=== PATIENT | female | born 1950 | race Caucasian/White ===

== ENCOUNTER 2017-01-25 12:27 | Inpatient (IN) | payer MEDICARE, OTHER ==
[2017-01-22 15:39] LABS: BASOPHILS 1.5 %; BASOPHILS ABSOLUTE 0.09 10/3/uL (0.0-0.16); EOSINOPHILS 6.8 %; EOSINOPHILS ABSOLUTE 0.42 10/3/uL (0.0-0.53); HEMOGLOBIN 14.5 g/dL (12.0-16.0); IMMATURE GRANULOCYTES 0.2 %; IMMATURE GRANULOCYTES ABSOLUTE 0.01 10/3/uL (0.0-0.11); LYMPHOCYTES 24.5 %; LYMPHOCYTES ABSOLUTE 1.51 10/3/uL (0.67-4.30); MANUAL DIFF NO %; MEAN CORPUS HGB CONC 33.7 g/dL (32.0-36.0); MEAN CORPUSCULAR VOLUME 92.1 fL (80-100); MEAN PLATELET VOLUME 10.1 fL (9.2-13.0); MONOCYTES 5.3 %; MONOCYTES ABSOLUTE 0.33 10/3/uL (0.21-1.20); NEUTROPHILS 61.7 %; NEUTROPHILS ABSOLUTE 3.81 10/3/uL (2.02-8.40); PLATELET COUNT 319 10/3/uL (150-400); RBC DISTRIBUTION WIDTH 13.5 % (12.0-16.0); RED CELL COUNT 4.67 10/6/uL (4.0-5.6); WHITE BLOOD CELLS 6.2 10/3/uL (4.5-10.5)
[2017-01-22 16:15] LABS: ASCORBIC ACID (UR NOT ORDER) NEG (NEG); BILIRUBIN, URINE NEGATIVE (NEG); KETONE, URINE NEGATIVE (NEG); LEUKOCYTE ESTERASE(NOT OR LARGE (NEG); WBC (NOT ORDERED) (RFLEX) 97 (0-5)
[2017-01-22 20:46] LABS: INTERNATIONAL NORMAL RATI 1.4 UNITS (-); PROTIME (NOT ORD) 17.4 SEC (12.0-14.5)
[2017-01-22 20:52] LABS: A/G RATIO 0.8 (0.7-1.9); ALBUMIN 3.4 G/DL (3.5-5.0); ALKALINE PHOSPHATASE 133 U/L (45-117); BUN (BLOOD UREA NITROGEN) 12 MG/DL (6-23); CALCIUM, SERUM 9.2 MG/DL (8.5-10.4); CHLORIDE, SERUM 99 MMOL/L (96-112); CO2 (CARBON DIOXIDE) 32 MMOL/L (24-34); CREATININE 0.98 MG/DL (0.55-1.02); GFR AFRICAN AMERICAN 69 ML/MIN (>=60); GFR NON AFRICAN AMERICAN 60 ML/MIN (>=60); GLOBULIN 4.1 G/DL (2.5-4.1); GLUCOSE, SERUM 90 MG/DL (60-99); POTASSIUM, SERUM 4.3 MMOL/L (3.5-5.3); SGOT(AST) 16 U/L (5-40); SGPT(ALT) 10 U/L (5-65); SODIUM, SERUM 139 MMOL/L (135-148); TOTAL BILIRUBIN 0.4 MG/DL (0-1.2); TOTAL PROTEIN 7.5 G/DL (6.0-8.5)
--- NOTE | ~2017-01-25 | DS ---
Discharge Summary [id number] [place]. [address] NAME: TETE LUEVANO : 48 STATUS : DIS IN PAT#: [id number] AGE: 66 ADM/REG DATE : 01/25/17 MR#: [id number] REPORT SERV DATE: 02/08/17 DICTATED BY: JERRY VELASQUEZ DATE: 02/07/17 REPORT STATUS : Draft TRANSCRIBED BY: RONALD DATE: 02/07/17 Data Collection from hospitalization DISCHARGE DIAGNOSES: 1. 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 2. Osteoarthritis. 3. History of cerebrovascular accident. 4. Migraine headaches. 5. Former smoker. CONSULTATIONS: Elian Gibson MD PROCEDURES PERFORMED: Right total hip arthroplasty with removal of IM nail, complex reconstruction, 01/25/2017. PATHOLOGY: Right femoral head and hardware revision arthroplasty - femoral head with extensive marrow necrosis, focal osteonecrosis, and organizing hematoma consistent with fracture site. No malignant neoplasm identified. Changes of degenerative joint disease. Metallic deedee and screw tip consistent with orthopaedic hardware. MEDICATIONS: Colace 100 mg twice a day, Cymbalta 30 mg daily, vitamin D 50,000 units weekly, Flonase nasal spray one spray nasally daily, Neurontin 300 mg three times a day, Theragran tablets one tablet with breakfast, Klor-Con 20 mEq daily, Seroquel 25 mg at bedtime, Coumadin 2 mg at 6:00 p.m., [place] 7.5/325 one tablet every six hours as needed, Xanax 1 mg three times a day as needed, Robaxin 500 mg four times a day as needed, Zofran 4 mg as needed and as instructed, MiraLAX powder one packet as needed, Tylenol 650 mg every four hours as needed, Requip 0.25 mg twice a day, and Lasix 20 mg daily. CONDITION AT DISCHARGE: Stable. DISPOSITION: The patient was discharged to [facility] on a regular diet with activities as instructed. HOSPITAL COURSE: This is a 66-year-old female who had the complaint of severe constant right hip pain. She is status post open reduction and internal fixation of right subtrochanteric fracture in June of 2016. She said that she was doing better standing. She presented to the office on a stretcher. She said that her pain was due to an accident/injury after a fall on 07/01/2016. She had a hip surgery on 07/05/2016 in [place]. The patient was moved to [place] and into the [facility]. She said that her pain was significantly increased and she was concerned with her nonweightbearing x1 week and significant swelling and pain going into the right foot with soreness. 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 She was felt to have right hip subtrochanteric nonunion and severe collapse, status post IM nailing by another surgeon. Treatment options were discussed and it was elected to proceed with surgical intervention. She was admitted to the hospital at this time for further evaluation and treatment. Upon admission, she was taken to the operating room where she underwent the above-mentioned Discharge Summary [address] [address] NAME: TETE LUEVANO : 48 STATUS : DIS IN PAT#: [id number] AGE: 66 ADM/REG DATE : 01/25/17 MR#: [id number] REPORT SERV DATE: 02/08/17 DICTATED BY: JERRY VELASQUEZ DATE: 02/07/17 REPORT STATUS : Draft TRANSCRIBED BY: RONALD DATE: 02/07/17 procedure. She tolerated this well, and there were no complications. On postop day #1, she was doing well. She said it was hard to express herself verbally. KATHERINE hose were in place. She was found to have an E. coli urinary tract infection. Cipro was started. Her hypotension was improving. She was seen by Dr. Elian Gibson regarding medical management. The patient was unable to provide any history at this time. She reported no complaints other than pain. At the time of this evaluation, the patient was oliguric and anemic with a hemoglobin of 6.1. The patient was hypotensive, on IV fluids. He was unable to characterize if this was normocytic or microcytic anemia. The etiology was most likely secondary to acute blood loss in the setting of recent surgery. Hemoglobin had trended down from 9.4 to 6.1. Two units of packed red blood cells were going to be transfused. The patient did have some oliguria. The etiology was felt likely secondary to volume depletion. On exam, the patient did appear dry. A 500 mL bolus was going to be given and the patient started on normal saline. Acute kidney injury was improving. Creatinine had decreased from 1.44 to 1.04. Hypotension was felt likely secondary to volume depletion in the setting of severe blood well and status post surgery. All of her other medical problems would be managed on her home regimen. She was able to be up sitting in a bedside chair. She had some right-sided weakness and right arm contracture from her history of aneurysm. Coumadin was being held. INR level was supratherapeutic at 4.2. On 01/28/2017, creatinine level was 1.04. Vitamin depletion had resolved. Hypotension had also resolved. The patient said that Robaxin helped with her right leg spasms. No active bleeding was noted. IV vitamin K was given. Coumadin remained on hold. INR level was supratherapeutic now at 10.9. The following day, her INR level decreased to 1.4. Her pain was too intense to participate with Physical Therapy. We encouraged her to mobilize with Physical Therapy. Her supratherapeutic INR had improved with vitamin K. low-dose Coumadin was going to be restarted. Requip was continued. Discharge planning was performed. She did complain of some hip pain after participating with Physical Therapy. Occupational and Physical Therapy had evaluated the patient. Discharge planning continued. On 01/30/2017, she was in no acute distress. She had no complaints. KATHERINE hose remained in place. Discharge instructions were given. Due to her improved and stable condition, she was discharged to [facility] with the above-stated instructions. Information collected by: Maya Gomez I submit the above information as my discharge summary. TG/MODL Stefanie Velasquez M.D. / [id number] CC: Concha Botello ANDREA J [facility]
--- NOTE | ~2017-01-25 | CN ---
Consultation Report [facility] [address] [place]. [address] NAME: GHISLAINE LUEVANO : 48 STATUS : ADM IN [facility]#: [id number] AGE: 66 ADM/REG DATE : 01/25/17 MR#: [id number] REPORT SERV DATE: 01/27/17 DICTATED BY: MADISON KAHN DATE: 01/27/17 REPORT STATUS : Draft TRANSCRIBED BY: MODJose DATE: 01/27/17 CONSULTATION NOTE DATE OF CONSULTATION: REASON FOR CONSULT: Medical management. HISTORY OF PRESENTING ILLNESS: Ms. Ghislaine Luevano is a 66-year-old female with a history of schizoaffective disorder, osteoarthritis, and right hip nailing surgery, who was seen by Orthopedics for right total hip arthroplasty with removal of IM nail and complex reconstruction. The patient is status post procedure, which she tolerated well. Internal Medicine is being consulted to assist with medical management, status post procedure. At the time of my evaluation, the patient was unable to provide history. History is obtained through chart review. The patient reported no other complaints other than pain. At the time of my evaluation of the patient, the patient was oliguric, anemic with a hemoglobin of 6.1, and the patient was hypotensive, on IV fluid. PAST MEDICAL HISTORY: Per chart review: 1. Osteoarthritis. 2. History of DVT. 3. History of CVA. 4. Migraine headaches. PAST SURGICAL HISTORY: 1. Right shoulder arthroscopic surgery. 2. Hysterectomy. 3. Right hip nailing. FAMILY HISTORY: Significant for mother, osteoarthritis. Father, chronic lung disease. SOCIAL HISTORY: The patient is a former smoker. No alcohol or illicit drug use. ALLERGIES: THE PATIENT IS ALLERGIC TO PENICILLIN. HOME MEDICATIONS: 1. Apixaban 5 mg p.o. twice a day. 2. Cymbalta 30 mg p.o. daily. 3. Fluticasone nasal spray, one nasal spray daily. 4. Furosemide 20 mg p.o. daily. 5. Gabapentin 300 mg p.o. daily. 6. Robaxin 500 mg p.o. four times a day p.r.n. 7. Maben one tab q.6 hours p.r.n. 8. Potassium chloride 20 mEq p.o. daily. 9. Seroquel 25 mg p.o. at bedtime. Consultation Report [facility] [address] [place]. [address] NAME: GHISLAINE LUEVANO : 48 STATUS : ADM IN [facility]#: [id number] AGE: 66 ADM/REG DATE : 01/25/17 MR#: [id number] REPORT SERV DATE: 01/27/17 DICTATED BY: MADISON KAHN DATE: 01/27/17 REPORT STATUS : Draft TRANSCRIBED BY: MODL DATE: 01/27/17 10.Ropinirole 0.25 mg p.o. twice a day. PHYSICAL EXAMINATION: VITAL SIGNS: Blood pressure 90/50 with a pulse of 87, respiration rate 17, O2 sat 98% on 2 L nasal cannula, temperature 98.3. GENERAL: The patient is lying in bed. Appears stated age, in no acute distress. HEENT: Normocephalic and atraumatic. Moist oral mucosa. Extraocular motors intact. Anicteric sclerae. NECK: Trachea midline and symmetric. No JVD noted. CHEST: Nontender to palpation. CARDIOVASCULAR: Regular rate and rhythm. S1, S2. No murmurs, rubs, or gallops. LUNGS: Anterior lung li clear to auscultation. ABDOMEN: Positive bowel sounds, nontender, nondistended. EXTREMITIES: No cyanosis, no clubbing, no edema. Right upper extremity contracture noted. NEURO: The patient was alert and oriented. LABORATORIES: WBC 6.2, hemoglobin 6.1, hematocrit 18.5, platelets 319. Sodium 143, potassium 4.3, chloride 107, bicarb not available, BUN 17, creatinine 1.04, with a GFR of 64, glucose 122, calcium 7.6. ASSESSMENT AND PLAN: 1. Anemia, unable to characterize if this is normocytic or microcytic as no MCV available. Etiology most likely secondary to acute blood loss in the setting of recent surgery. Hemoglobin has trended down from 9.4 to 8.5 to 6.1. Plan, we will transfuse the patient 2 units PRBC. 2. Oliguria. Over the past 12 hours, the patient has put out about 400 mL. Etiology likely secondary to volume depletion. On exam, the patient appears dry. Plan, we will bolus the patient 500 mL and start the patient on normal saline 75 mL per hour for next 24 hours. Acute kidney injury, improving, creatinine trended down from 1.44 to 1.04, we will and monitor. 3. Hypotension, likely secondary to volume depletion in the setting of severe blood loss, status post surgery. We will bolus the patient with IV normal saline 500 mL for now and continue normal saline. All her other medical problems will be managed on her home regimen. RACHEL/RONALD Madison Kahn MD / [id number] CC: Consultation Report [address] [place]. [address] NAME: GHISLAINE LUEVANO Jose David : 48 STATUS : ADM IN [facility]#: [id number] AGE: 66 ADM/REG DATE : 01/25/17 MR#: [id number] REPORT SERV DATE: 01/27/17 DICTATED BY: MADISON KAHN DATE: 01/27/17 REPORT STATUS : Draft TRANSCRIBED BY: RONALD DATE: 01/27/17 Concha Botello
--- NOTE | ~2017-01-25 | OP ---
Record Of Operation [facility] [address] [place]. 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 PROCEDURE: Right total hip arthroplasty with removal of IM nail, complex reconstruction. SURGEON: Stefanie Hermosillo M.D. PULMONARY PHYSICAL THERAPIST: See chart. DESCRIPTION OF PROCEDURE: The patient was taken to the operating room and placed supine on the table in normal fashion without incident. General anesthetic was induced per the anesthesiologist. The patient was carefully positioned, padded, prepped, and draped in normal sterile fashion. Sharp dissection was made through the old incision with electrocautery through the fat. It was extended distally as well. IT band split in line with its fibers. A standard anterolateral approach to the hip was carried out between the anterior gluteus medius and the anterior vastus fibers off the anterior capsule. Anterior capsulectomy was performed and the hip was carefully dislocated. There was obvious subtrochanteric nonunion with motion at the base of the neck. The screw from the Gamma nail was identified. The locking screw released from the top of the nail followed by the lag screw being removed and then a nail was grasped and removed. Osteotomy was marked on the femoral neck and cut with an oscillating saw. Attention was directed to the acetabulum. It was prepared by removing the acetabular labrum and pulvinar fat. Sequential reamers were used to a 51 and a 52 cup was placed and impacted after irrigation with excellent interference fit. Four screws were placed in a standard fashion with drill depth gauge and self-tapping screw placement. A trial liner was placed. Attention was directed back to the femur. This was prepared with sequential reamers up to a 13 and broaches to a 13.5 small. A trial reduction was carried out and gave excellent stability. She had severe tightening. Because of the nonunion and multiple fracture fragments, I opted for a constrained liner that was placed and impacted. The stem was then placed after placing a prophylactic cable just distal to the extent of her fracture that stayed right on the bone on the proximal femur with a cable passer. It was tightened, crimped and cut short after placing the stem that was impacted. The ball was then placed on the cleansed trunnion. The hip was carefully relocated and a locking rim was placed and impacted around the acetabular polyethylene. This gave excellent stability. Two cables were then passed staying directly on the bone around the proximal femur. These were used with the trochanteric health promotion officer to reassemble her proximal femur. The cables were tightened, crimped, and cut short. The wound was irrigated and closed in layered fashion, stapled the skin. The wound was dressed sterilely. The patient was awakened and taken to the postanesthesia care unit without incident. Record Of Operation [address] [address] NAME: TETE LUEVANO : 48 STATUS : ADM IN PAT#: [id number] AGE: 66 ADM/REG DATE : 01/25/17 MR#: [id number] REPORT SERV DATE: 01/26/17 DICTATED BY: JERRY HERMOSILLO DATE: 01/26/17 REPORT STATUS : Draft TRANSCRIBED BY: MODL DATE: 01/26/17 COMPLICATIONS: None. SPECIMENS: Right femoral head and hardware. ESTIMATED BLOOD LOSS: About 300 mL. WTB/MODL Stefanie Hermosillo M.D. / [id number] CC: Stefanie Hermosillo M.D.
[~2017-01-25 12:27] MED LIST: CYMBALTA30 PO; ELIQUIS 5 MG TAB5 MG PO; FLONASE NAS; KLOR-CON M2020 MEQ PO; L20 PO; METHOC500B PO; MIRALAX POWDER1 PKT PO; NEUR300 PO; NORCO1 TA2 PO; REQUIP25 PO; SEROQUEL25 PO; T PO; VITD PO; XANAX1 MG PO; [UNRECOGNIZED DRUG - CODE] IJ
[2017-01-26 06:55] LABS: HEMATOCRIT 27.2 % (36.0-48.0); HEMOGLOBIN 8.5 g/dL (12.0-16.0)
[2017-01-26 07:05] LABS: BUN (BLOOD UREA NITROGEN) 15 MG/DL (6-23); CALCIUM, SERUM 8.1 MG/DL (8.5-10.4); CHLORIDE, SERUM 107 MMOL/L (96-112); CO2 (CARBON DIOXIDE) 23 MMOL/L (24-34); CREATININE 1.44 MG/DL (0.55-1.02); GFR AFRICAN AMERICAN 43 ML/MIN (>=60); GFR NON AFRICAN AMERICAN 37 ML/MIN (>=60); GLUCOSE, SERUM 141 MG/DL (60-99); POTASSIUM, SERUM 4.2 MMOL/L (3.5-5.3); SODIUM, SERUM 140 MMOL/L (135-148)
[2017-01-26 07:08] LABS: INTERNATIONAL NORMAL RATI 1.3 UNITS (-); PROTIME (NOT ORD) 16.1 SEC (12.0-14.5)
[2017-01-26 07:58] LABS: HEMATOCRIT 28.4 % (36.0-48.0); HEMOGLOBIN 9.4 g/dL (12.0-16.0)
[2017-01-26 13:53] LABS: HEMOGLOBIN 8.5 g/dL (12.0-16.0)
[2017-01-26 13:54] LABS: HEMATOCRIT 25.4 % (36.0-48.0)
[2017-01-27 05:12] LABS: BUN (BLOOD UREA NITROGEN) 17 MG/DL (6-23); CALCIUM, SERUM 7.6 MG/DL (8.5-10.4); CHLORIDE, SERUM 107 MMOL/L (96-112); CO2 (CARBON DIOXIDE) 27 MMOL/L (24-34); CREATININE 1.04 MG/DL (0.55-1.02); GFR AFRICAN AMERICAN 64 ML/MIN (>=60); GFR NON AFRICAN AMERICAN 56 ML/MIN (>=60); GLUCOSE, SERUM 122 MG/DL (60-99); POTASSIUM, SERUM 4.3 MMOL/L (3.5-5.3); SODIUM, SERUM 143 MMOL/L (135-148)
[2017-01-27 05:21] LABS: INTERNATIONAL NORMAL RATI 4.2 UNITS (-)
[2017-01-27 05:29] LABS: PROTIME (NOT ORD) 40.1 SEC (12.0-14.5)
[2017-01-27 06:20] LABS: HEMATOCRIT 18.5 % (36.0-48.0); HEMOGLOBIN 6.1 g/dL (12.0-16.0)
[2017-01-27 09:55] LABS: A/G RATIO 0.7 (0.7-1.9); ALBUMIN 1.9 G/DL (3.5-5.0); ALKALINE PHOSPHATASE 65 U/L (45-117); BASOPHILS 0 %; EOSINOPHILS 0 %; GLOBULIN 2.8 G/DL (2.5-4.1); IMMATURE GRANULOCYTES 0.3 %; IMMATURE GRANULOCYTES ABSOLUTE 0.02 10/3/uL (0.0-0.11); LYMPHOCYTES ABSOLUTE 0.71 10/3/uL (0.67-4.30); MEAN CORPUS HGB CONC 34.4 g/dL (32.0-36.0); MEAN CORPUSCULAR HEMOGLOB 31.2 pg (26.0-34.0); MEAN CORPUSCULAR VOLUME 90.6 fL (80-100); MEAN PLATELET VOLUME 9.4 fL (9.2-13.0); MONOCYTES 6.8 %; MONOCYTES ABSOLUTE 0.44 10/3/uL (0.21-1.20); NEUTROPHILS 81.9 %; NEUTROPHILS ABSOLUTE 5.31 10/3/uL (2.02-8.40); RBC DISTRIBUTION WIDTH 13.9 % (12.0-16.0); SGOT(AST) 22 U/L (5-40); SGPT(ALT) 10 U/L (5-65); TOTAL BILIRUBIN 0.2 MG/DL (0-1.2); TOTAL PROTEIN 4.7 G/DL (6.0-8.5); WHITE BLOOD CELLS 6.5 10/3/uL (4.5-10.5)
[2017-01-27 09:56] LABS: PLATELET COUNT 130 10/3/uL (150-400); RED CELL COUNT 2.02 10/6/uL (4.0-5.6)
[2017-01-27 09:57] LABS: MANUAL DIFF NO %
[2017-01-27 16:25] LABS: HEMATOCRIT 27.9 % (36.0-48.0); HEMOGLOBIN 9.3 g/dL (12.0-16.0)
[2017-01-28 08:22] LABS: BASOPHILS 0.6 %; BASOPHILS ABSOLUTE 0.04 10/3/uL (0.0-0.16); EOSINOPHILS 7.6 %; EOSINOPHILS ABSOLUTE 0.49 10/3/uL (0.0-0.53); HEMATOCRIT 26.8 % (36.0-48.0); IMMATURE GRANULOCYTES 0.3 %; IMMATURE GRANULOCYTES ABSOLUTE 0.02 10/3/uL (0.0-0.11); LYMPHOCYTES ABSOLUTE 1.42 10/3/uL (0.67-4.30); MEAN CORPUS HGB CONC 33.6 g/dL (32.0-36.0); MEAN CORPUSCULAR HEMOGLOB 30.2 pg (26.0-34.0); MEAN CORPUSCULAR VOLUME 89.9 fL (80-100); MEAN PLATELET VOLUME 9.4 fL (9.2-13.0); MONOCYTES 6.8 %; MONOCYTES ABSOLUTE 0.44 10/3/uL (0.21-1.20); NEUTROPHILS 62.7 %; NEUTROPHILS ABSOLUTE 4.03 10/3/uL (2.02-8.40); PLATELET COUNT 112 10/3/uL (150-400); WHITE BLOOD CELLS 6.4 10/3/uL (4.5-10.5)
[2017-01-28 08:23] LABS: MANUAL DIFF NO %; RBC DISTRIBUTION WIDTH 16.9 % (12.0-16.0); RED CELL COUNT 2.98 10/6/uL (4.0-5.6)
[2017-01-28 08:33] LABS: A/G RATIO 0.5 (0.7-1.9); ALBUMIN 1.7 G/DL (3.5-5.0); ALKALINE PHOSPHATASE 69 U/L (45-117); CALCIUM, SERUM 7.6 MG/DL (8.5-10.4); CHLORIDE, SERUM 114 MMOL/L (96-112); CO2 (CARBON DIOXIDE) 23 MMOL/L (24-34); CREATININE 0.75 MG/DL (0.55-1.02); GFR AFRICAN AMERICAN 96 ML/MIN (>=60); GFR NON AFRICAN AMERICAN 82 ML/MIN (>=60); GLOBULIN 3.1 G/DL (2.5-4.1); POTASSIUM, SERUM 3.8 MMOL/L (3.5-5.3); SGOT(AST) 22 U/L (5-40); SODIUM, SERUM 147 MMOL/L (135-148); TOTAL BILIRUBIN 0.4 MG/DL (0-1.2); TOTAL PROTEIN 4.8 G/DL (6.0-8.5)
[2017-01-28 08:34] LABS: BUN (BLOOD UREA NITROGEN) 9 MG/DL (6-23); GLUCOSE, SERUM 79 MG/DL (60-99); SGPT(ALT) < 6 U/L (5-65)
[2017-01-28 08:51] LABS: INTERNATIONAL NORMAL RATI 10.9 UNITS (-); PROTIME (NOT ORD) 84.7 SEC (12.0-14.5)
[2017-01-28 11:51] LABS: SMEAR FOR ABNORMAL CELLS SEE PATHOLOGY REPORT
[2017-01-29 05:05] LABS: BASOPHILS 0.4 %; BASOPHILS ABSOLUTE 0.03 10/3/uL (0.0-0.16); EOSINOPHILS 9.3 %; EOSINOPHILS ABSOLUTE 0.72 10/3/uL (0.0-0.53); HEMOGLOBIN 8.6 g/dL (12.0-16.0); IMMATURE GRANULOCYTES 0.3 %; IMMATURE GRANULOCYTES ABSOLUTE 0.02 10/3/uL (0.0-0.11); LYMPHOCYTES 19.9 %; LYMPHOCYTES ABSOLUTE 1.54 10/3/uL (0.67-4.30); MEAN CORPUS HGB CONC 33.1 g/dL (32.0-36.0); MEAN CORPUSCULAR HEMOGLOB 29.7 pg (26.0-34.0); MEAN CORPUSCULAR VOLUME 89.7 fL (80-100); MEAN PLATELET VOLUME 9.4 fL (9.2-13.0); MONOCYTES 6.5 %; NEUTROPHILS 63.6 %; NEUTROPHILS ABSOLUTE 4.93 10/3/uL (2.02-8.40); PLATELET COUNT 127 10/3/uL (150-400); RBC DISTRIBUTION WIDTH 16.1 % (12.0-16.0); WHITE BLOOD CELLS 7.7 10/3/uL (4.5-10.5)
[2017-01-29 05:10] LABS: MANUAL DIFF NO %
[2017-01-29 05:16] LABS: A/G RATIO 0.6 (0.7-1.9); ALBUMIN 1.7 G/DL (3.5-5.0); ALKALINE PHOSPHATASE 72 U/L (45-117); BUN (BLOOD UREA NITROGEN) 7 MG/DL (6-23); CALCIUM, SERUM 7.6 MG/DL (8.5-10.4); CHLORIDE, SERUM 112 MMOL/L (96-112); CO2 (CARBON DIOXIDE) 25 MMOL/L (24-34); CREATININE 0.65 MG/DL (0.55-1.02); GFR AFRICAN AMERICAN 106 ML/MIN (>=60); GFR NON AFRICAN AMERICAN 92 ML/MIN (>=60); GLOBULIN 2.9 G/DL (2.5-4.1); GLUCOSE, SERUM 89 MG/DL (60-99); POTASSIUM, SERUM 3.9 MMOL/L (3.5-5.3); SGOT(AST) 20 U/L (5-40); SODIUM, SERUM 144 MMOL/L (135-148); TOTAL BILIRUBIN 0.6 MG/DL (0-1.2); TOTAL PROTEIN 4.6 G/DL (6.0-8.5)
[2017-01-29 05:18] LABS: INTERNATIONAL NORMAL RATI 1.4 UNITS (-)
[2017-01-29 05:20] LABS: PROTIME (NOT ORD) 17.2 SEC (12.0-14.5); SGPT(ALT) < 6 U/L (5-65)
[2017-01-30 05:22] LABS: INTERNATIONAL NORMAL RATI 1.5 UNITS (-); PROTIME (NOT ORD) 17.9 SEC (12.0-14.5)
[2017-01-30 05:25] LABS: HEMATOCRIT 27.5 % (36.0-48.0); HEMOGLOBIN 9.1 g/dL (12.0-16.0)
== END 2017-01-30 18:30 | DRG 470 ==
LOC: SDC/OF 12:27 → PACU 19:16 → 2SO 21:56
PROVIDERS: Hospitalist; Specialist
PROC: 0SR90JA Replacement of Right Hip Joint with Synthetic Substitute, Uncemented, Open Approach (ICD-10-PCS; principal; 2017-01-25 14:30)
PROC: 0YP90YZ Removal of Other Device from Right Lower Extremity, Open Approach (ICD-10-PCS; 2017-01-25 14:30)
PROC: 30233N1 Transfusion of Nonautologous Red Blood Cells into Peripheral Vein, Percutaneous Approach (ICD-10-PCS; 2017-01-27)
DX: S72.24XA Nondisplaced subtrochanteric fracture of right femur, initial encounter for closed fracture (principal); N17.9 Acute kidney failure, unspecified; I95.9 Hypotension, unspecified; F25.9 Schizoaffective disorder, unspecified; D62 Acute posthemorrhagic anemia; N39.0 Urinary tract infection, site not specified; M19.90 Unspecified osteoarthritis, unspecified site; E86.9 Volume depletion, unspecified; G25.81 Restless legs syndrome; Z86.718 Personal history of other venous thrombosis and embolism; Z86.73 Personal history of transient ischemic attack (TIA), and cerebral infarction without residual deficits; Z98.890 Other specified postprocedural states; Z82.61 Family history of arthritis; Z83.6 Family history of other diseases of the respiratory system; Z87.891 Personal history of nicotine dependence; Z88.0 Allergy status to penicillin
CPT/HCPCS: 36415; 71020-PO; 72170; 80048; 80053; 81001; 85014; 85018; 85025; 85610; 86850; 86900; 86901; 86920; 87077; 87086; 87186; 87641; 88300; 88304; 88311; 93005; 97110-GO; 97110-GP; 97162-GP; 97167-GO; 97530-GP; 97535-GO; A9270-GY; C1713; C1776; G8978-CM-GP; G8979-CK-GP; J0690; J1170; J1885; J2250; J2270; J2274; J2370; J2550; J2795; J3010; J3370; J3430; P9016